=== PATIENT | female | born 1950 | race Hispanic/Latino ===

== ENCOUNTER 2019-05-09 08:00 | Day surgery (SDC) | payer MEDICARE ==
[~2019-05-09] VITALS: Ht 152.4 cm; Wt 41.3 kg
[~2019-05-09 08:00] MED LIST: SODIUM CHLORIDE 0.9% 1000ML 1,000 ML IV ONE
[2019-05-09 12:03] LABS: BASOPHILS % (AUTO) 0.6 % (0.0-5.0); EOSINOPHILS % (AUTO) 2.1 % (0.0-8.0); LYMPHOCYTES % (AUTO) 20.6 % (21.0-51.0); MEAN CORPUSCULAR HEMOGLOBIN 29.9 pg (27.0-33.0); MEAN CORPUSCULAR HGB CONC 32.9 g/dL (32.0-36.0); MEAN CORPUSCULAR VOLUME 90.9 fL (79-99); MONOCYTES % (AUTO) 8.4 % (3.0-13.0); NEUTROPHILS % (AUTO) 68.3 % (40.0-77.0); PLATELET COUNT (AUTO) 168 K/uL (130-400); RED BLOOD CELL COUNT(AUTO) 3.74 MIL/uL (4.00-5.50); RED CELL DISTRIBUTION WIDTH 14.4 % (11.0-15.5); WHITE BLOOD COUNT (AUTO) 3.2 K/uL (4.8-10.8)
[2019-05-09 12:18] LABS: INR 0.94 (0.85-1.15); PROTHROMBIN TIME 9.9 SEC (9.6-11.6)
[2019-05-09 12:53] VITALS: BP 121/58
[2019-05-09] MEDS ORDERED: PHEN1SUP43 RC (13:10)
[2019-05-09] MEDS ORDERED: IBUP-2784 PO (13:10)
[2019-05-09] MEDS ORDERED: TUMS PO (13:10)
[2019-05-09] MEDS ORDERED: PREG75 PO (13:10)
[2019-05-09] MEDS ORDERED: RANI300T4 PO (13:10)
[2019-05-09] MEDS ORDERED: DULO20CA18 PO (13:10)
[2019-05-09] MEDS ORDERED: ZOLP5TAB8 PO (13:10)
[2019-05-09] MEDS ORDERED: D3 PO (13:10)
[2019-05-09] MEDS ORDERED: CALC-1200 PO (13:10)
[2019-05-09 13:13] VITALS: BP 101/48
[2019-05-09 13:22] VITALS: BP 113/51
[2019-05-09] MEDS ORDERED: HEPARIN SODIUM/PF 100UNIT/ML 5ML SYRINGE IV STA (13:28)
[2019-05-09 13:33] VITALS: BP 114/50
== END 2019-05-09 14:02 | disposition home or self-care (01) ==
LOC: ENDO 08:00
PROVIDERS: ATTEND Internal Medicine Gastroenterology
DX: K86.2 Cyst of pancreas (principal); K31.89 Other diseases of stomach and duodenum; K44.9 Diaphragmatic hernia without obstruction or gangrene; K21.9 Gastro-esophageal reflux disease without esophagitis; F41.9 Anxiety disorder, unspecified; M81.0 Age-related osteoporosis without current pathological fracture; E78.5 Hyperlipidemia, unspecified; M19.90 Unspecified osteoarthritis, unspecified site; Z88.8 Allergy status to other drugs, medicaments and biological substances; Z98.890 Other specified postprocedural states; Z79.899 Other long term (current) drug therapy; Z86.010 Personal history of colon polyps
CPT/HCPCS: 36415; 43237; 85025; 85610; A4606; J1642 ×2; J7030; 43259